=== PATIENT | male | born 1940 | race Caucasian/White ===

== ENCOUNTER → 2025-02-18 07:10 | Outpatient (REF) | payer OTHER, SELFPAY ==
[2025-02-18 07:54] LABS: Hematocrit 35.4 % (39.0-52.0); Hemoglobin 11.8 g/dL (13.0-18.0); Mean Corp Hgb Conc. 33.3 g/dL (33.0-37.0); Mean Corpuscular Volume 95.2 fL (80.0-94.0); Nucleated Red Blood Cells % 0 % (-); Platelet Count 210 10^3/uL (130-400); Red Cell Dist. Width 13.4 % (11.5-14.5)
[2025-02-18 08:20] LABS: ALT (SGPT) < 10 U/L (0-50); AST (SGOT) 16 U/L (17-59); Albumin 4.0 g/dl (3.5-5.0); Alkaline Phosphatase 73 U/L (38-126); Blood Urea Nitrogen 23 mg/dl (9-20); Calcium 9.0 mg/dl (8.4-10.2); Carbon Dioxide 24 mmol/L (22-30); Chloride 113 mmol/L (98-107); Glucose 127 mg/dl (70-99); HDL Cholesterol 48 mg/dl; LDL Cholesterol, Calculated 38 mg/dl; Potassium 4.7 mmol/L (3.5-5.1); Sodium 143 mmol/L (135-145); Total Protein 6.6 g/dl (6.3-8.2); Very Low Density Lipoprotein 14 mg/dl (0-30); eGFR 59.26
== END ==
LOC: REG 07:10
PROVIDERS: ATTENDING PHYSICIAN Internal Medicine Cardiovascular Disease
DX: I25.10 Atherosclerotic heart disease of native coronary artery without angina pectoris (principal); E78.00 Pure hypercholesterolemia, unspecified
CPT/HCPCS: 36415; 80053; 80061; 85025

== ENCOUNTER 2025-05-15 16:58 | Emergency (ER) | payer OTHER, SELFPAY ==
[2025-05-15] VITALS (11 sets, daily range): BP systolic 114–154; BP diastolic 46–81; BMI 29.2
[2025-05-15 17:54] LABS: Hematocrit 34.0 % (39.0-52.0); Hemoglobin 11.8 g/dL (13.0-18.0); Mean Corp Hgb Conc. 34.7 g/dL (33.0-37.0); Mean Corpuscular Volume 91.6 fL (80.0-94.0); Nucleated Red Blood Cells % 0 % (-); Platelet Count 195 10^3/uL (130-400); Red Cell Dist. Width 12.8 % (11.5-14.5)
[2025-05-15 18:19] LABS: Blood Urea Nitrogen 32 mg/dl (9-20); Calcium 9.1 mg/dl (8.4-10.2); Carbon Dioxide 18 mmol/L (22-30); Chloride 110 mmol/L (98-107); Estimated Creatinine Clearance 30 ml/min; Glucose 149 mg/dl (70-99); Sodium 138 mmol/L (135-145); eGFR 41.70
[2025-05-15 18:27] LABS: Troponin I < 0.012 ng/ml
[2025-05-15] MEDS: NSS 500 IV (18:47)
--- NOTE | 2025-05-15 18:49 | ED.GENMED ---
History of Present Illness
<Trino Call PA-C - Last Filed: 05/18/25 07:22>
General
Chief Complaint: Dizziness
Source: patient
Exam Limitations: none
Time Seen by Provider: 05/15/25 18:17
History of Present Illness
History of Present Illness:
85-year-old male presents via EMS after syncopal episode at home. Patient was standing cooking and started to feel dizzy and lightheaded and weak. His family tried to get him upstairs to his bed and when they got him upstairs he seemed to pass
out. They guided him to the floor. They actually did 1 chest compression however upon doing 1 chest compression the patient woke up. Preceding all the symptoms he was having some epigastric discomfort. He has coronary artery disease with stents.
He follows with cardiology here. He states he did not sleep well last night. He did not eat or drink much today.
Past History
<Trino Call PA-C - Last Filed: 05/18/25 07:22>
Past History
ED Past Medical History: CAD, HTN, Hypercholesterolemia and NIDDM
ED Past Surgical History: Cardiac
Social History
Tobacco: Non-smoker
Personal:
Living: with family
Employment: Retired
Phy Exam
<LISA Collier Last Filed: 05/18/25 07:22>
Physical Exam
Physical Exam:
General: Well-appearing male no respiratory distress
HEENT: Normal cephalic atraumatic
Heart: Regular rate and rhythm
Lungs: Clear no wheeze
Abdomen is soft nontender
Extremities: No cyanosis or edema
Skin warm no rash
Course
<LISA Collier Last Filed: 05/18/25 07:22>
Orders/Labs/Results
Orders:
Orders
05/15/25 17:36
Basic Metabolic Panel Urgent
Complete Blood Count/With Diff Urgent
Troponin I Urgent
05/15/25 18:19
Electrocardiogram (*1) Urgent
Reason for Study: Syncope
EKG- Treatment ONCE
05/15/25 18:28
Mwbaw-Qufl-Abwwmzz Urgent
Potassium Urgent
05/15/25 18:39
0.9% Sodium Chloride 500 ml [Nss] 500 ml IV BOLUS
05/15/25 19:05
Add On- LAB Urgent
Tests Added?: Liver Function Tests (LFT's)
05/15/25 19:12
EKG- Treatment ONCE
05/15/25 20:15
Troponin I Urgent
05/15/25 20:36
Electrocardiogram (*1) Urgent
Reason for Study: Other
Other Reason for Exam: Possible Sepsis
Abnormal Lab Results
05/15/25
17:36
RBC 3.71 L 10^6/uL
(4.70-6.10)
Hgb 11.8 L g/dL
(13.0-18.0)
Hct 34.0 L %
(39.0-52.0)
MCH 31.8 H pg
(27.0-31.0)
MPV 11.0 H fL
(7.4-10.4)
Absolute Monos (auto) 1.0 H 10^3/uL
(0.1-0.6)
Monocytes % 12.0 H %
(1.7-9.3)
Chloride 110 H mmol/L
(98-107)
Carbon Dioxide 18 L mmol/L
(22-30)
BUN 32 H mg/dl
(9-20)
Creatinine 1.6 H mg/dL
(0.7-1.3)
Glucose 149 H mg/dl
(70-99)
05/15/25 17:36
05/15/25 18:28
Vital Signs
Initial and Last Documented VS:
Initial Vital Signs
Pulse Resp
68 24
05/15/25 17:14 05/15/25 17:14
Last Documented Vital Signs
Temp Pulse Resp BP Pulse Ox
98.4 F 69 16 130/81 98
05/15/25 17:15 05/15/25 21:00 05/15/25 21:00 05/15/25 20:48 05/15/25 21:00
<Demetris Hoang MD - Last Filed: 05/15/25 19:43>
Orders/Labs/Results
Orders:
Orders
05/15/25 17:36
Basic Metabolic Panel Urgent
Complete Blood Count/With Diff Urgent
Troponin I Urgent
05/15/25 18:19
Electrocardiogram (*1) Urgent
Reason for Study: Syncope
EKG- Treatment ONCE
05/15/25 18:28
Abfnx-Atbg-Lhkmjyc Urgent
Potassium Urgent
05/15/25 18:39
0.9% Sodium Chloride 500 ml [Nss] 500 ml IV BOLUS
05/15/25 19:05
Add On- LAB Urgent
Tests Added?: Liver Function Tests (LFT's)
05/15/25 19:12
EKG- Treatment ONCE
05/15/25 20:15
Troponin I Urgent
05/15/25 20:36
Electrocardiogram (*1) Urgent
Reason for Study: Other
Other Reason for Exam: Possible Sepsis
Abnormal Lab Results
05/15/25
17:36
RBC 3.71 L 10^6/uL
(4.70-6.10)
Hgb 11.8 L g/dL
(13.0-18.0)
Hct 34.0 L %
(39.0-52.0)
MCH 31.8 H pg
(27.0-31.0)
MPV 11.0 H fL
(7.4-10.4)
Absolute Monos (auto) 1.0 H 10^3/uL
(0.1-0.6)
Monocytes % 12.0 H %
(1.7-9.3)
Chloride 110 H mmol/L
(98-107)
Carbon Dioxide 18 L mmol/L
(22-30)
BUN 32 H mg/dl
(9-20)
Creatinine 1.6 H mg/dL
(0.7-1.3)
Glucose 149 H mg/dl
(70-99)
05/15/25 17:36
05/15/25 18:28
Vital Signs
Initial and Last Documented VS:
Initial Vital Signs
Pulse Resp
68 24
05/15/25 17:14 05/15/25 17:14
Last Documented Vital Signs
Temp Pulse Resp BP Pulse Ox
98.4 F 69 16 130/81 98
05/15/25 17:15 05/15/25 21:00 05/15/25 21:00 05/15/25 20:48 05/15/25 21:00
<Trino Call PA-C - Last Filed: 05/18/25 07:22>
MDM/Problems Addressed
Differential Diagnosis Includes:
Syncope. Question vasovagal versus arrhythmia versus anemia versus dehydration
He describes a prodrome of symptoms including fatigue and lightheadedness. EKG here shows sinus rhythm with PVCs. Question volume depletion. Creatinine is 1.6 which is new
Initial troponin undetectable. Given his history and the discomfort he described repeat troponin was ordered. Will hydrate.
<Trino Call PA-C - Last Filed: 05/18/25 07:22>
*Pulse Oximetry
SaO2: 99
Oxygen Mode of Delivery: Room air
Patient hypoxic: no
*Critical Care Note
Total Time (30-74mins, 75-104mins- exclusive of procedures): Not Applicable
<Trino Call PA-C - Last Filed: 05/18/25 07:22>
Update Note
Update Note:
Repeat EKG shows sinus rhythm with a rate of 66
Pending negative repeat troponin, patient stable for discharge. Will recommend he follow-up with cardiology
ED Attending Note
<Trino Call PA-C - Last Filed: 05/18/25 07:22>
-
Portions of this chart may have been created with voice recognition software.� Occasional wrong word or��sound alike� substitutions may have occurred due to the inherent limitations of voice recognition software.
<Demetris Hoang MD - Last Filed: 05/15/25 19:43>
ED Attending Note
Patient seen and examined by attending physician: Yes
I performed the substantive portion of visit, reviewed & personally made and approve the management plan that is documented in note by myself or PERNELL.: Yes
ED Attending Note:
85-year-old male with vague upper abdominal discomfort earlier today. He then became lightheaded weak pale passed out briefly. Family noted a thready weak bradycardic pulse. They 1 compression which immediately woke him up. He currently has no
complaints denying chest pain shortness of breath lightheadedness headache or any other complaints. Abdominal pain is also resolved
On exam patient is nontoxic in no distress. Normocephalic atraumatic. Neck is supple and nontender. No chest wall tenderness. Heart regular rate and rhythm no murmur. Abdomen is nontender. No rebound or guarding no mass or hernia. No
pulsatile masses. Lungs are clear and equal. He is nonfocal. Speech is normal. He is pleasant interactive and in no distress
EKG sinus rhythm PVCs. No acute findings. Left axis deviation. Nonspecific changes.
Renal insufficiency/dehydration. Troponin negative.
Lengthy discussion with the patient and family concerning options. Conservative option would be admission monitoring and observation in the hospital. This would be the safest approach. However likely is describing a vasovagal syncope. Repeat
troponin and EKG are negative and patient feels perfectly fine not unreasonable to try to want to be home at [place]. Risk-benefit of both approaches were explained to the family.
Discharge Plan
Departure
Patient Disposition: Home (Routine Discharge)
Date of Disposition: 05/15/25
Time of Disposition: 20:59
Patient with high blood pressure during this ER visit?: No
Discharge Problem:
Syncope
Instructions: Chest Pain DCA Follow Up
Prescriptions:
No Action
metformin 500 MG tablet
500 mg PO DAILY
aspirin 325 MG tablet
325 mg PO DAILY
metoprolol succinate 100 MG tablet extended release 24 hr
100 mg PO DAILY
doxazosin 4 MG tablet
4 mg PO HS
quinapril 20 MG tablet
20 mg PO DAILY
furosemide 20 MG tablet
20 mg PO DAILY
vitamin E 400 UNIT capsule
200 unit PO DAILY
ezetimibe-simvastatin 10 MG/80 MG tablet
1 tab PO HS
metformin 1,000 MG tablet
1,000 mg PO QPM
prednisone 10 MG tablet
10 mg PO DAILY Qty: 18 0RF
Rx Instructions:
3 tabs daily x 3 days,then 2 tabs daily x 3 days, then 1 tab daily x 3 days
famciclovir 500 MG tablet
500 mg PO TID Qty: 21 0RF
Referrals:
Sarah Ortega MD [Family Provider, Internal Medicine]
Activity Restrictions/Additional Instructions:
Please return here for worsening symptoms otherwise follow-up with cardiology. Rest. Stay hydrated
Interventions
Interventions:
*General Assessment Last Done: 12/24/25 17:15
*Neglect/Abuse Screening Last Done: 05/15/25 17:15
*ED COVID-19 Vaccine History Last Done: 05/15/25 17:15
*ED Influenza Vaccine History Last Done: 05/15/25 17:15
[facility] Fall Risk Assessment Tool Last Done: 05/15/25 17:32
*Risk Screen - Suicide (C-SSRS) Last Done: 05/15/25 17:15
*Nursing Disposition Last Done: 05/15/25 21:17
ED- Neurological Assessment Last Done: 05/15/25 17:15
ED- Cardiac Assessment Last Done: 05/15/25 18:13
Discharge Date and Time
Discharge Date/Time: 05/15/25 21:18
Print Language: BOLIVIAN
[2025-05-15 18:51] LABS: Potassium 4.4 mmol/L (3.5-5.1)
[2025-05-15 19:21] LABS: ALT (SGPT) 13 U/L (0-50); AST (SGOT) 22 U/L (17-59); Albumin 4.0 g/dl (3.5-5.0); Alkaline Phosphatase 76 U/L (38-126); Total Protein 7.0 g/dl (6.3-8.2)
[2025-05-15 20:58] LABS: Troponin I < 0.012 ng/ml
== END 2025-05-15 21:18 | disposition home or self-care (01) ==
LOC: EMR 16:58
PROVIDERS: Physician Assistant; EMERGENCY PHYSICIAN Emergency Medicine; FAMILY PHYSICIAN Student in an Organized Health Care Education/Training Program
DX: R55 Syncope and collapse (principal); I25.10 Atherosclerotic heart disease of native coronary artery without angina pectoris; I10 Essential (primary) hypertension; E78.00 Pure hypercholesterolemia, unspecified; E11.9 Type 2 diabetes mellitus without complications; Z95.5 Presence of coronary angioplasty implant and graft
CPT/HCPCS: 99283; 96360; 80048; 80076; 84132; 84484; 85025; 93005